=== PATIENT | female | born 1950 | race Caucasian/White ===

== ENCOUNTER 2017-03-09 11:05 | Observation (INO) | payer MEDICARE, OTHER ==
[2017-03-09 11:07] VITALS: BMI 31.5
[2017-03-09] MEDS ORDERED: Albuterol-Ipratrop 3 mg / 0.5 (3 ml) UD IH STA ×2 (11:34→11:50)
--- NOTE | 2017-03-09 11:39 | ED PDOC ---
Arrival/HPI - General Historian: Patient - History of Present Illness Time/Duration: < week Symptom Onset: Sudden Symptom Course: Intermittent Activities at Onset: Rest Context: Home <Aaron Elizondo - Last Filed: 03/09/17 12:48> <MariettaRosalinda - Last Filed: 03/09/17 12:50> - General Chief Complaint: Shortness Of Breath Time Seen by Provider: 03/09/17 11:08 - History of Present Illness Narrative History of Present Illness (Text): 03/09/17 11:36 66yo F PMH HTN, HLD, DM2 who presents to the ED with shortness of breath x3 days , which she describes as needing to take deep breaths every 2-3 mins. Pt states that she had similar symptoms last month when she was started on gemfibrozil. Pt saw Dr. Julian last week and was told to get a CXR 2 days ago. Pt states that she took her rescue inhaler over the weekend and it provided some relief, and states that Dr. Julian told her that her sob is likely due to weather changes. pt denies wheezing, pedal edema, chest pain, palpitations, fevers/ chills, n/v/d/urinary changes, cough, headache, recent travel. (Aaron Elizondo) Past Medical History - Provider Review Nursing Documentation Reviewed: Yes - Past History Past History: Non-Contributing - Infectious Disease Hx of Infectious Diseases: None - Tetanus Immunization Tetanus Immunization: Unknown - Cardiac Hx Hyperlipemia: Yes Hx Hypertension: Yes Hx Pacemaker: No - Pulmonary Hx Respiratory Disorders: No - Neurological Hx Neurological Disorder: No Hx Paralysis: No - HEENT Hx HEENT Disorder: No - Renal Hx Renal Disorder: No - Endocrine/Metabolic Hx Endocrine Disorders: Yes Hx Diabetes Mellitus Type 2: Yes - Hematological/Oncological Hx Blood Disorders: No Hx Blood Transfusions: No Hx Blood Transfusion Reaction: No - Integumentary Hx Dermatological Disorder: No - Musculoskeletal/Rheumatological Hx Musculoskeletal Disorders: No - Gastrointestinal Hx Gastrointestinal Disorders: No - Genitourinary/Gynecological Hx Genitourinary Disorders: No - Psychiatric Hx Psychophysiologic Disorder: No Hx Emotional Abuse: No Hx Physical Abuse: No Hx Substance Use: No - Surgical History Hx Section: Yes - Anesthesia Hx Anesthesia: No Hx Anesthesia Reactions: No Hx Malignant Hyperthermia: No - Suicidal Assessment Feels Threatened In Home Enviroment: No <CaroAaron garcia - Last Filed: 03/09/17 12:48> Family/Social History - Physician Review Nursing Documentation Reviewed: Yes Family/Social History: No Known Family HX Smoking Status: Never Smoked Hx Alcohol Use: No Hx Substance Use: No <Aaron Elizondo - Last Filed: 03/09/17 12:48> Allergies/Home Meds <Aaron Elizondo - Last Filed: 03/09/17 12:48> <Rosalinda Mcmanus - Last Filed: 03/09/17 12:50> Allergies/Adverse Reactions: Allergies amlodipine [From Norvasc] Allergy (Verified 03/09/17 11:33) RASH atorvastatin [From Lipitor] Allergy (Verified 03/09/17 11:33) RASH codeine Allergy (Verified 03/09/17 11:33) RASH heparin Allergy (Verified 03/09/17 11:33) RASH lisinopril Allergy (Verified 03/09/17 11:33) RASH Thiazides Allergy (Verified 03/09/17 11:33) RASH Home Medications: Home Meds Medication Instructions Recorded Confirmed Metformin Hydrochloride 500 mg PO DAILY 10/17/11 03/09/17 [Glucophage] Valsartan [Diovan] 320 mg PO QAM 10/17/11 03/09/17 Rosuvastatin Calcium [Crestor] 10 mg PO QPM 10/28/13 09/04/15 hydrALAZINE [Apresoline] 25 mg PO ONCE 03/09/17 03/09/17 Review of Systems - Physician Review All systems were reviewed & negative as marked: Yes - Review of Systems Constitutional: absent: Fevers Respiratory: SOB. absent: Cough, Sputum, Wheezing Cardiovascular: absent: Chest Pain, Palpitations, Edema <Aaron Elizondo - Last Filed: 03/09/17 12:48> Physical Exam Vital Signs Reviewed: Yes Appearance: Positive for: Well-Appearing Pain Distress: None Mental Status: Positive for: Alert and Oriented X 3 - Systems Exam Head: Present: Atraumatic, Normocephalic Pupils: Present: PERRL Extroacular Muscles: Present: EOMI Conjunctiva: Present: Normal Mouth: Present: Moist Mucous Membranes Neck: Present: Normal Range of Motion. No: Meningeal Signs, Lymphadenopathy Respiratory/Chest: Present: Clear to Auscultation, Good Air Exchange. No: Respiratory Distress, Accessory Muscle Use, Wheezes, Rales, Tachypneic Cardiovascular: Present: Regular Rate and Rhythm, Normal S1, S2. No: Murmurs Abdomen: Present: Normal Bowel Sounds. No: Tenderness, Distention Back: Present: Normal Inspection Upper Extremity: Present: Normal Inspection, Normal ROM Lower Extremity: Present: Normal Inspection. No: Edema, CALF TENDERNESS, Delonte' s Sign Neurological: Present: CN II-XII Intact, Speech Normal, Motor Func Grossly Intact, Normal Sensory Function Skin: Present: Warm, Dry, Normal Color Psychiatric: Present: Alert, Oriented x 3 <Aaron Elizondo - Last Filed: 03/09/17 12:48> Temperature: Afebrile Blood Pressure: Normal Pulse: Regular Respiratory Rate: Normal <Rosalinda Mcmanus - Last Filed: 03/09/17 12:50> Vital Signs Temp Pulse Resp BP Pulse Ox 03/09/17 11:46 18 98 03/09/17 11:10 97.9 F 73 18 148/76 100 Medical Decision Making Re-evaluation Time: 12:44 Reassessment Condition: Re-examined, Improved - Lab Interpretations I have reviewed the lab results: Yes - EKG Interpretation Interpreted by ED Physician: Yes Type: 12 lead EKG <Aaron Elizondo - Last Filed: 03/09/17 12:48> <Rosalinda Mcmanus - Last Filed: 03/09/17 12:50> ED Course and Treatment: 03/09/17 11:42 Impression: 66yo F presenting with SOB x3 days likely due to airway reactive disease Plan: - Reassess and disposition - LABS - D-Dimer - EKG - Duonebs Progress Notes: CXR from 2 days ago showed no active disease. EKG: Ordered, reviewed, and independently interpreted the EKG. Rate : 68 BPM Rhythm : NSR Interpretation : 1/2mm ST depression in V4-V6. 03/09/17 11:45 Stress Test from August 2015 results reviewed showing normal exam with >60% EF. 03/09/17 12:44 Dr. Mcmanus spoke with Dr. Julian and decided to keep patient for observation and eval. (Aaron Elizondo) A 66 year old male with shortness of breath. In agreement with resident note, which includes further HPI details. Patient was seen and evaluated with resident , came up with plan and treatment together. 03/09/17 12:46 EKG with 1/[address] depression in v4-v6 c/w old. Patient with multiple risk factors for ACS with unexplained dyspnea on exertion. Labs are nondiagnostic - will need further observation on tele and cardio and pulmonary eval. Discussed with Dr. Julian. (Rosalinda Mcmanus) - Lab Interpretations Lab Results: 03/09/17 11:40 03/09/17 11:40 Lab Results 03/09/17 11:40: Sodium 134, Potassium 3.8, Chloride 98, Carbon Dioxide 26, Anion Gap 14, BUN 13, Creatinine 0.6 L, Est GFR ( Amer) > 60, Est GFR ( Non-Af Amer) > 60, Random Glucose 117 H, Calcium 9.6, Total Bilirubin 0.4, AST 25, ALT 31, Alkaline Phosphatase 76, Lactate Dehydrogenase 318 L, Total Creatine Kinase 78, Troponin I < 0.01, NT-Pro-B Natriuret Pep 40.0, Total Protein 7.6, Albumin 4.4, Globulin 3.2, Albumin/Globulin Ratio 1.4 03/09/17 11:40: D-Dimer, Quantitative 0.21 03/09/17 11:40: WBC 8.4 D, RBC 4.58, Hgb 12.6, Hct 36.8, MCV 80.3, MCH 27.5, MCHC 34.2, RDW 13.7, Plt Count 251, MPV 10.3, Gran % 58.0, Lymph % (Auto) 34.1, Ferry % (Auto) 6.6 H, Eos % (Auto) 1.1 L, Baso % (Auto) 0.2, Gran # 4.84, Lymph # 2.9, Ferry # 0.6, Eos # 0.1, Baso # 0.02 - Medication Orders Current Medication Orders: Discontinued Medications Albuterol/Ipratropium (Duoneb 3 Mg/0.5 Mg (3 Ml) Ud) 3 ml IH STAT STA Stop: 03/09/17 11:35 Last Admin: 03/09/17 11:57 Dose: 3 ml Albuterol/Ipratropium (Duoneb 3 Mg/0.5 Mg (3 Ml) Ud) 3 ml IH STAT STA Stop: 03/09/17 11:51 Last Admin: 03/09/17 11:57 Dose: Aspirin (Aspirin Chewable) 324 mg PO STAT STA Stop: 03/09/17 12:45 <Aaron Elizondo - Last Filed: 03/09/17 12:48> - PA / REHEATER HELPER / Resident Statement MD/DO has reviewed & agrees with the documentation as recorded. MD/DO has examined the patient and agrees with the treatment plan. - Scribe Statement The provider has reviewed the documentation as recorded by the Scribe <Rosalinda Mcmanus - Last Filed: 03/09/17 12:50> - Scribe Statement Eoldia Quezada Provider Scribe Attestation: All medical record entries made by the Scribe were at my direction and personally dictated by me. I have reviewed the chart and agree that the record accurately reflects my personal performance of the history, physical exam, medical decision making, and the department course for this patient. I have also personally directed, reviewed, and agree with the discharge instructions and disposition. (Rosalinda Mcmanus) Disposition/Present on Arrival - Present on Arrival Any Indicators Present on Arrival: No History of DVT/PE: No History of Uncontrolled Diabetes: Yes Urinary Catheter: No History of Decub. Ulcer: No History Surgical Site Infection Following: None - Disposition Have Diagnosis and Disposition been Completed?: Yes Disposition Time: 12:45 Patient Plan: Observation <Aaron Elizondo - Last Filed: 03/09/17 12:48> - Disposition Patient Plan: Observation, Telemetry <Rosalinda Mcmanus - Last Filed: 03/09/17 12:50> - Disposition Diagnosis: Shortness of breath Disposition: HOSPITALIZED Patient Problems: Current Active Problems Problem Status Onset Shortness of breath Acute Condition: FAIR Referrals: PCP,NO [Primary Care Provider] - Follow up with primary Forms: [facility] (Malay)
[2017-03-09 11:45] LABS: BASO # 0.02 K/mm3 (0.0-2.0); BASO % 0.2 % (0.0-3.0); EOS # 0.1 (0.0-0.7); EOS % 1.1 % (1.5-5.0); GRAN # 4.84 (1.4-6.5); HEMATOCRIT 36.8 % (36.0-48.0); LYMPH # 2.9 (1.2-3.4); LYMPH % 34.1 % (22.0-35.0); MEAN CELL VOLUME 80.3 fl (80.0-105.0); MEAN CORPUSCULAR HEMOGLOBIN 27.5 pg (25.0-35.0); MEAN CORPUSCULAR HGB CONC 34.2 g/dl (31.0-37.0); MEAN PLATELET VOLUME 10.3 fl (7.0-11.0); MONO # 0.6 (0.1-0.6); MONO % 6.6 % (1.0-6.0); RED CELL DISTRIBUTION WIDTH 13.7 % (11.5-14.5); WHITE BLOOD COUNT 8.4 10^3/ul (4.5-11.0)
[2017-03-09 11:53] LABS: ALB/GLOB RATIO 1.4 (1.1-1.8); ALKALINE PHOSPHATASE 76 U/L (38-126); ALT/SGPT 31 U/L (7-56); AST/SGOT 25 U/L (14-36); BILIRUBIN,TOTAL 0.4 mg/dL (0.2-1.3); BLOOD UREA NITROGEN 13 mg/dL (7-21); CALCIUM 9.6 mg/dL (8.4-10.5); CARBON DIOXIDE 26 mmol/L (21-33); CHLORIDE 98 mmol/L (98-107); GFR AFRICAN-AMERICAN > 60; GLUCOSE,RANDOM 117 mg/dL (70-110); POTASSIUM 3.8 mmol/L (3.6-5.0); SODIUM 134 mmol/L (132-148); TOTAL PROTEIN 7.6 g/dL (5.8-8.3)
[2017-03-09 12:06] LABS: TROPONIN I < 0.01 ng/mL
[2017-03-09 12:53] LABS: URINE BILIRUBIN NEGATIVE (NEGATIVE); URINE BLOOD NEGATIVE (NEGATIVE); URINE GLUCOSE (UA) NEGATIVE (NEGATIVE); URINE KETONE NEGATIVE (NEGATIVE); URINE LEUKOCYTE ESTERASE NEGATIVE Leu/uL (NEGATIVE); URINE PROTEIN NEGATIVE mg/dL (<30 mg/dL); URINE UROBILINOGEN 0.2 E.U./dL (<1 E.U./dL)
[2017-03-09 12:55] LABS: URINE APPEARANCE CLEAR (CLEAR); URINE COLOR YELLOW (YELLOW)
[2017-03-09] MEDS ORDERED: METFORMIN HYDROCHLORIDE 500 MG PO SCH (18:00)
--- NOTE | 2017-03-09 19:14 | CARD ---
APPROVED REPORT EKG Measurement Heart [id number] <Conclusion> Normal sinus rhythm Normal ECG
[2017-03-09] MEDS ORDERED: Pneumococcal 23-Valent Vaccine IM ONE (19:43)
--- NOTE | 2017-03-09 20:47 | CON ---
DATE: 03/09/2017 CONSULT SERVICE: Cardiology. REASON FOR CONSULTATION: Shortness of breath, cardiac evaluation. BRIEF CLINICAL HISTORY: This is a 66-year-old female with a past medical history significant for hypertension, hyperlipidemia, type 2 diabetes, obesity, who is on multiple medications, who was seen by Dr. Julian who gave her gemfibrozil and the patient then says that shortness of breath started on 02/14/2017. She took it for five days and did get more short of breath, since then the patient has been short of breath though the patient just started gemfibrozil. The patient says that this is her usual presentation of reaction to the medication, though denies any definite chest pain complaint, dyspnea on exertion, or shortness of breath on exertion. PAST MEDICAL HISTORY: Significant for diabetes, hypertension, hyperlipidemia, and obesity. SOCIAL HISTORY: Denies smoking. Denies any history of alcohol. CURRENT MEDICATIONS: The patient is taking Crestor 10 mg daily, hydralazine 25 mg daily, valsartan 320 mg, and metformin 500 mg daily. ALLERGIES: REPORTED TO AMLODIPINE, ATORVASTATIN, CODEINE, HEPARIN, GEMFIBROZIL, LISINOPRIL, AND THIAZIDE. FAMILY HISTORY: Significant for coronary artery disease. Mother had coronary artery disease. Brother had coronary artery disease and stent at the age of 61. Previous cardiac workup is as follows: The patient had a stress test on 09/03/2015, normal myocardial perfusion study, ejection fraction of 72%, dated 09/03/2015. REVIEW OF SYSTEMS: As per HPI. PHYSICAL EXAMINATION VITAL SIGNS: Temperature, afebrile, heart rate 60, and blood pressure 134/80. HEENT: PERRLA intact. NECK: Supple. No carotid bruit or thyromegaly. CHEST: Clear to auscultation. HEART: S1 and S2 regular. ABDOMEN: Soft. EXTREMITIES: Clubbing and cyanosis negative. LABORATORY DATA: Blood workup as follows: WBC 8.5, hemoglobin 12.3, hematocrit 36.8, and platelet count 251. Chemistry shows sodium 134, potassium 3.8, chloride 90, carbon dioxide 26, anion gap of 14, BUN 13, creatinine 0.6, troponin 0.01. EKG shows normal sinus, no acute ST-T changes noted, heart rate is 60. IMPRESSION AND PLAN: Dyspnea on exertion, diabetes, obesity, elevated body mass index, multiple risk factors for coronary artery disease, body mass index is 32 kg/m2. I suggest echo and the stress, lipid profile, TSH, hemoglobin A1c. We will follow with you. The patient has multiple risk factors for coronary artery disease. I suggest echo and the stress as mentioned above. We will follow with you. Thank you Dr. Julian for providing me the opportunity in taking care of the patient, Leticia. Julio Reyna MD
[2017-03-09] MEDS: Albuterol-Ipratrop 3 mg / 0.5 (3 ml) UD IH SCH (20:55)
[2017-03-10] MEDS: Albuterol-Ipratrop 3 mg / 0.5 (3 ml) UD IH SCH ×3 (02:30→13:46)
[2017-03-10 06:12] VITALS: O2SAT 97
[2017-03-10 06:18] LABS: BASO # 0.03 K/mm3 (0.0-2.0); BASO % 0.3 % (0.0-3.0); EOS # 0.1 (0.0-0.7); EOS % 0.9 % (1.5-5.0); GRAN # 6.29 (1.4-6.5); GRAN % 58.9 % (50.0-68.0); HEMATOCRIT 35.5 % (36.0-48.0); LYMPH # 3.5 (1.2-3.4); LYMPH % 33.1 % (22.0-35.0); MEAN CELL VOLUME 80.3 fl (80.0-105.0); MEAN CORPUSCULAR HEMOGLOBIN 27.1 pg (25.0-35.0); MEAN CORPUSCULAR HGB CONC 33.8 g/dl (31.0-37.0); MEAN PLATELET VOLUME 10.9 fl (7.0-11.0); MONO # 0.7 (0.1-0.6); MONO % 6.8 % (1.0-6.0); RED CELL DISTRIBUTION WIDTH 13.8 % (11.5-14.5); WHITE BLOOD COUNT 10.7 10^3/ul (4.5-11.0)
[2017-03-10 06:37] LABS: ALB/GLOB RATIO 1.4 (1.1-1.8); ALKALINE PHOSPHATASE 76 U/L (38-126); ALT/SGPT 34 U/L (7-56); AST/SGOT 23 U/L (14-36); BILIRUBIN,TOTAL 0.4 mg/dL (0.2-1.3); BLOOD UREA NITROGEN 12 mg/dL (7-21); CALCIUM 9.5 mg/dL (8.4-10.5); CARBON DIOXIDE 26 mmol/L (21-33); CHLORIDE 99 mmol/L (98-107); CHOLESTEROL 145 mg/dL (130-200); GFR AFRICAN-AMERICAN > 60; GLUCOSE,RANDOM 110 mg/dL (70-110); MAGNESIUM 1.8 mg/dL (1.7-2.2); PHOSPHOROUS 4.1 mg/dL (2.5-4.5); SODIUM 137 mmol/L (132-148); TOTAL PROTEIN 7.4 g/dL (5.8-8.3)
--- NOTE | 2017-03-10 08:53 | HP ---
CHIEF COMPLAINT: Shortness of breath. HISTORY OF PRESENT ILLNESS: Ms. Sheikh Kelly is a 66-year-old my private patient with past medical history of hypertension, hypercholesterolemia, diabetes mellitus, came to the Emergency Room with shortness of breath for 3 days, which she described as needing to take deep breath every 2 to 3 minutes, the patient states that she had similar symptoms last month. Actually, we did patient's routine blood workup as her triglyceride was high, I put her on gemfibrozil. The patient started shortness of breath. She was thinking that her shortness of breath is due to gemfibrozil and she was informed to stop gemfibrozil, then last week she came in my office again with shortness of breath. Actually, I offered her ER visit, she refused, then I gave her phone number of Dr. Rodriguez and scheduled her appointment with Dr. Spring and I sent her for chest x-rays. The patient was using rescue inhaler when she was feeling shortness of breath with some relief. According to the patient, she is snoring at night and always her blood pressure in the morning is high as compared to the daytime. I saw the patient in the telemetry. No nausea, vomiting, or diarrhea. No hematuria or hematochezia. No swelling of the legs. No headache. No dizziness. PAST MEDICAL HISTORY: Hypercholesterolemia, hypertension; diabetes mellitus type 2, medicine dependent, non-insulin requiring, and history of section. FAMILY HISTORY: Father and mother noncontributory. HABITS: Never smoked. No drugs. No ethanol. ALLERGIES: THE PATIENT IS ALLERGIC WITH AMLODIPINE, ATORVASTATIN, CODEINE, HEPARIN, LISINOPRIL, AND THIAZIDE. HOME MEDICATIONS: Glucophage, Diovan, Crestor, and hydralazine. REVIEW OF SYSTEMS: The patient was seen and examined at the bedside in the telemetry, looking comfortable. No nausea, vomiting, or diarrhea. No hematuria or hematochezia. No chest pain. No palpitations. No headache. No dizziness. Still getting occasional shortness of breath. No fever. No chills. Seen by the production analyst and banjo repair person. PHYSICAL EXAMINATION: VITAL SIGNS: Temperature 97.9, pulse 73, respiratory rate 18, blood pressure 148/76, and pulse oximetry 100. HEENT: Head is normocephalic and atraumatic. Eyes: PERRLA. Extraocular muscles are intact. Conjunctivae clear. Nose is patent. NECK: Supple. No carotid bruit, JVD, or thyromegaly. CHEST: Bilaterally symmetrical. HEART: S1 and S2 positive. LUNGS: Clear to auscultation. ABDOMEN: Soft. Bowel sounds positive. No organomegaly. EXTREMITIES: No edema. No cyanosis. NEUROLOGIC: The patient is awake and alert. Moving all 4 extremities. No focal deficits. LABORATORY DATA: White blood cell is 8.4, hemoglobin 12.6, hematocrit 36.8, and platelets 251. Sodium 134, potassium 3.8, BUN 13, creatinine 0.6, and glucose 117. ASSESSMENT AND PLAN: Ms. Sheikh Kelly is a 66-year-old lady with a history of diabetes mellitus, hypercholesterolemia, hypertriglyceridemia, hypertension, obesity, and dyspnea on exertion. Seen by Dr. Reyna. He suggested echo and stress test tomorrow. Seen by Dr. Spring also, rule out obstructive sleep apnea and according to the patient, her blood pressure in the morning is always high as compared to the daytime. Discussion done with Dr. Reyna and Dr. Spring, gastrointestinal and deep venous thrombosis prophylaxis, repeat labs, restarted home medication, and we will followup. Lupe Julian MD
--- NOTE | 2017-03-10 08:58 | CON ---
PULMONARY DATE: 03/09/2017 REFERRING PHYSICIAN: Dr. Julian. REASON FOR CONSULTATION: Shortness of breath, snoring, daytime sleeping, and tired. HISTORY OF PRESENT ILLNESS: This is a 66-year-old female with past medical history significant for labile hypertension, diabetes, hyperlipidemia, overweight, presented to ER with some shortness of breath. According to her, her blood pressure in the morning is usually high, daytime it improves, has snoring, daytime sleeping and tired. No nausea. No vomiting. No diarrhea. No leg pain or leg swelling. PAST MEDICAL HISTORY: Diabetes, hypertension, hyperlipidemia, and overweight. SOCIAL HISTORY: No smoking or alcohol use. FAMILY HISTORY: No significant lung disease reported. There is a coronary artery disease in the family though. ALLERGIES: AMLODIPINE, ATORVASTATIN, CODEINE, HEPARIN,GEMFIBROZIL, LISINOPRIL, AND . MEDICATIONS: She is on Diovan 320 mg daily, albuterol/Atrovent nebulizer q.6 hour, Ecotrin 81 mg daily, metformin 500 mg daily, Pepcid 40 mg at bedtime, and Crestor 10 mg daily. REVIEW OF SYSTEMS: No headache. No rhinitis. Admitted to snoring at nighttime. Daytime sleeping and tired. In the morning has usually high blood pressure. No nausea and no vomiting. No dysuria, leg pain, or leg swelling. Gets short of breath. PHYSICAL EXAMINATION: GENERAL: No acute distress. VITAL SIGNS: Temperature is 98, heart rate 72, respiratory rate is 20, blood pressure 145/64 and pulse ox 98% on room air. HEENT: Moist mucous membrane. Crowded airway. NECK: Supple. No JVD. LUNGS: Has a fair airflow with few rhonchi. HEART: S1 and S2. ABDOMEN: Soft and nontender. No organomegaly. EXTREMITIES: There is no edema. NEUROLOGIC: Awake and alert. Follow simple command. LABORATORY DATA: Shows hemoglobin 12.6, hematocrit 36.8, WBC 8.4, platelet is 251. D-dimer is 0.21. Sodium 134, potassium 3.8, chloride 98, bicarbonate 26, BUN 13, creatinine 0.6, glucose is 117, calcium 9.6. Total bilirubin is 0.4, AST 25, ALT 31, alkaline phosphatase is 76. LDH is 318, troponin less than 0.01. Albumin is 4.4. EKG was done, which shows normal sinus rhythm. IMPRESSION AND PLAN: Rule out coronary artery disease, hypertension, diabetes, hyperlipidemia, need to rule out lung disease, and sleep apnea syndrome. Agree with the cardiac workup. Get chest x-ray. We will do outpatient pulmonary function test and sleep study. Case discussed with Dr. Julian. Thank you and we will follow with you. Julio Spring MD
[2017-03-10] MEDS ORDERED: Non Formulary Medication (Valsartan [Diovan] 320 MG) PO SCH (10:00)
--- NOTE | 2017-03-10 13:02 | RAD ---
HISTORY: sob COMPARISON: 03/07/2017 TECHNIQUE: Chest PA and lateral FINDINGS: LUNGS: No active pulmonary disease. PLEURA: No significant pleural effusion identified. No pneumothorax apparent. CARDIOVASCULAR: Normal. OSSEOUS STRUCTURES: No significant abnormalities. VISUALIZED UPPER ABDOMEN: Normal. OTHER FINDINGS: None. IMPRESSION: No active disease.
--- NOTE | 2017-03-10 14:29 | PN ---
DATE: 03/10/2017 REASON FOR CONSULTATION: Followup shortness of breath and cardiac evaluation. SUBJECTIVE: This is a 66-year-old female with past medical history significant for hypertension, hyperlipidemia, multiple risk factors, admitted with shortness of breath and chest pain. The patient is scheduled for a stress test today. Denies any chest pain today. PHYSICAL EXAMINATION VITAL SIGNS: Temperature is afebrile, heart rate is 70, and blood pressure is 134/59. HEENT: PERRLA. Extraocular muscles intact. NECK: Supple. No carotid bruit or thyromegaly. CHEST: Clear to auscultation. HEART: S1 and S2 regular. ABDOMEN: Soft. EXTREMITIES: Clubbing and cyanosis negative. LABORATORY DATA: Blood workup as follows: WBC of 10.9, hemoglobin of 12, hematocrit of 35.5, and platelet count of 258. Chemistry shows sodium of 132, potassium of 4, chloride of 99, carbon dioxide of 16, anion gap of 12, and creatinine 0.6. TSH is 6.98. Total protein of 7.4, albumin of 2.4, albumin-globulin ratio 1.4. Triglycerides of 118, cholesterol of 145, LDL of 57, and HDL of 68. IMPRESSION: Dyspnea on exertion, obesity with body mass index 28.5 kg, diabetes, hypertension, hyperlipidemia, multiple risk factors of coronary artery disease, and hypothyroidism. RECOMMENDATIONS: Recommended echo and stress test today, awaiting for hemoglobin A1c. Further recommendations after the stress test, we will add low dose of Synthroid. Thank you Dr. Julian for providing us the opportunity in taking care of patient, Leticia Mcpherson. Julio Reyna MD
[2017-03-10 15:43] VITALS: PULSE 64
--- NOTE | 2017-03-10 16:13 | CARD ---
APPROVED REPORT EXAM: Two-dimensional and M-mode echocardiogram with Doppler and color Doppler. INDICATION Chest Pain LV FX 2D DIMENSIONS Left Atrium (2D)3.0 (1.6-4.0cm)IVSd1.0 (0.7-1.1cm) LVDd4.3 (3.9-5.9cm)PWd0.9 (0.7-1.1cm) LVDs2.9 (2.5-4.0cm)FS (%) 33.5 % LVEF (%)62.6 (>50%) M-Mode DIMENSIONS Aortic Root2.80 (2.2-3.7cm)Aortic Cusp Exc.1.30 (1.5-2.0cm) Aortic Valve AoV Peak Yqeqmscs395.0cm/Raf Peak GR.11mmHg Mitral Valve MV E Scswxoia87.8cm/sMV A Hfdudzzv133.0cm/sE/A ratio0.8 TDI E/Lateral E'0.0E/Medial E'0.0 Tricuspid Valve TR Peak [id number]/sRAP [id number] Peak Gr.31mmHg [id number] LEFT VENTRICLE The left ventricle is normal size. There is normal left ventricular wall thickness. The left ventricular function is normal.EF-60-65% There is normal LV segmental wall motion. Transmitral Doppler flow pattern is Grade III-reversible restrictive diastolic dysfunction. No left ventricle thrombus noted on this study. There is no ventricular septal defect visualized. There is no left ventricular aneurysm. There is no mass noted in the left ventricle. RIGHT VENTRICLE The right ventricle is normal size. There is normal right ventricular wall thickness. The right ventricular systolic function is normal. ATRIA The left atrium size is normal. The right atrium size is normal. The interatrial septum is intact with no evidence for an atrial septal defect. AORTIC VALVE The aortic valve is thickened but opens well. No aortic regurgitation is present. There is no aortic valvular stenosis. There is no aortic valvular vegetation. MITRAL VALVE The mitral valve is thickened but opens well. Mitral regurgitation is mild to moderate. There is no mitral valve stenosis. There is no evidence of mitral valve prolapse. TRICUSPID VALVE The tricuspid valve leaflets are thickened , but open well. There is moderate tricuspid regurgitation.RVSP-41 mmof hg. There is no tricuspid valve stenosis. There is no tricuspid valve prolapse or vegetation. PULMONIC VALVE The pulmonary valve is normal in structure. There is no pulmonic valvular regurgitation. There is no pulmonic valvular stenosis. GREAT VESSELS The aortic root is normal in size. The ascending aorta is normal in size. The pulmonary artery is normal. The IVC is normal in size and collapses >50% with inspiration. PERICARDIAL EFFUSION There is no pleural effusion. There is no pericardial effusion. <Conclusion> Normal chamber size. EF-60-65% Mitral regurgitation is mild to moderate. There is moderate tricuspid regurgitation.RVSP-41 mmof hg. There is no pericardial effusion. The IVC is normal in size and collapses >50% with inspiration. No vegetation or thrombus noted.
[2017-03-10 18:28] VITALS: BP 119/51; RESP 19; TEMP 98.4
--- NOTE | 2017-03-10 19:33 | CARD ---
APPROVED REPORT Protocol: WANDA Test Type: Sestamibi Stress Test Attending Physician: Dr. Julio Rodriguez Referring Physician: Dr. Lupe Julian Test Indications: Dyspnea with Exercise Height:5 ft 4 in Weight:154lbs Medications: albuterol, aspirin, pepcid, metformin, crestor, diovan Medical History: 66 year old female with a h/o diabetes, htn and high cholesterol Target HR: 153 bpm Resting ECG: RSR. Resting Heart Rate: 69 bpm Resting Blood Pressure: 132/76mmHg Submaximum (85%): 130 bpm POST EXERCISE Reason for Termination: Fatigue and Shortness of Breath. Target HR: Yes Max HR: 155 bpm 110% of Maximum Predicted HR: 153 bpm Exercise duration: 06:04 min:sec, 3 Stage Exercise capacity: 7.1METs Max Blood Pressure: 142/86mmHg Blood Pressure response to exercise: normal resting BP - appropriate response Heart Rate response to exercise: appropriate Chest Pain: No, none Angina index: 0 Arrhythmia: No, none ST Change: Yes, ST Depression 1mm upsloping type in 2,3,AVF,V4, V5 Deviation: 0 mm TEST SUMMARY [id number]/.0. [id number]/[id number]. EXERCISESTAGE [id number]/66.0. EXERCISESTAGE 203:[id number]/78.0. EXERCISESTAGE 300:[id number]/78.0. [id number]/86.0. INTERPRETATION Stress EKG Conclusion: MYOVIEW STRESS TEST STOPPED AFTER 5 MINUTES AND 40 SECONDS OF WANDA PROTOCOL DUE TO FATIGUE AND SHORTNESS OF BREATH. PATIENT ACHIEVED MORE THAN 100% OF PREDICTED HEART RATE. NO CHEST PAIN. CLOSE TO 1MM UPSLOPING TYPE ST SEGMENT DEPRESSION IN 2,3, AVF,V4,V5,V6. NUCLEAR SCAN REPORT PENDING. Signed by Julio Rodriguez Electronically Approved: 03/10/2017 11:59:58 EXAM: Myocardial Perfusion REST/STRESS Stress Test Type: Exercise Treadmill Imaging Protocol Rest Spect myocardial perfusion imaging was performed in supine position 45 minutes following the injection of 10.8 mCi of Tc-99 Myoview. At peak stress, the patient was injected intravenously with 30.9mCi of Tc-99 tetrofosmin after an exercise time of 6 minutes and 04 seconds. Gated Stress Spect was performed 65 minutes after intravenous Tc-99 Myoview injection. The images were gated to evaluate regional wall motion and calculate ventricular ejection fraction.Images were reconstructed using backfilter projection method in short horizontal and verticle long axis. Spect slices were generated. LV Perfusion The quality of the study is good. The left ventricle is normal in size. The right ventricle is unremarkable. The lung uptake is within normal limits. The distribution of tracer reveals normal uptake pattern throughout the LV myocardium on the stress study. The rest myocardial perfusion study shows no significant change. Wall Motion Wall motion study shows good contractility of the left ventricle. LVEF = 78%. Conclusion 1. Normal SPECT myocardial perfusion study. 2. Normal gated wall motion of the left ventricle. 3. In comparison with the last study of 09/03/2015, there is no significant change
--- NOTE | 2017-03-11 00:30 | PN ---
PULMONARY PROGRESS NOTE DATE: 03/10/2017 REFERRING PHYSICIAN: Dr. Julian. SUBJECTIVE: She is sitting on side of the bed. Her daughter and his physician are at bedside, has a cardiac workup done today, was told it is unremarkable. Feels better. No more shortness of breath. No chest pain. No nausea, no vomiting, no diarrhea. No leg pain or leg swelling. Her blood pressure is usually high in the morning, but later in the afternoon gets better. OBJECTIVE: GENERAL: In no acute distress. VITAL SIGNS: Temperature is 98, heart rate is 64, respiratory rate 18, blood pressure is 119/51 and pulse ox 97% on room air. HEENT: Moist mucous membranes. Crowded airway. NECK: Supple. No JVD. LUNGS: Has a fair airflow with rhonchi. HEART: S1 and S2. ABDOMEN: Soft, nontender. No organomegaly. EXTREMITIES: There is no edema. NEUROLOGIC: Awake and alert. Follows simple commands. LABORATORY DATA: Reviewed noted. Hemoglobin 12.0, hematocrit 35.5, WBC 10.7, platelet is 258. Sodium 137, potassium 4.0, chloride 99, bicarbonate 26, BUN 12, creatinine 0.6 and glucose 110. Hemoglobin A1c is 6.9, calcium is 9.5, phosphorus 4.1, magnesium 1.8, AST 23, ALT 34, alkaline phosphatase is 76 and albumin is 4.4. HDL cholesterol is 68 and total cholesterol 145. TSH is 6.98. Urinalysis is unremarkable. Had a chest x-ray done, which shows no infiltrate or effusion. Echocardiogram was done, which shows LV ejection fraction 60% to 65%, moderate tricuspid regurgitation right ventricular systolic pressure is 41. Stress test shows normal wall motion, LV ejection fraction 78%. Normal gated wall motion and left ventricle. IMPRESSION AND PLAN: Admitted with shortness of breath, chest x-ray is okay. Echocardiogram shows mild pulmonary hypertension. Hyperlipidemia and hypertension need to rule out sleep apnea syndrome. We will need sleep study as outpatient and also need PFT. Spoke to the patient's daughter and his physician at bedside, all the questions answered. Thank you and we will follow with you. Julio Spring MD
[2017-03-11] MEDS ORDERED: Levothyroxine 25 MCG TAB PO SCH (06:00)
--- NOTE | 2017-03-11 20:08 | DS ---
The patient is a 66-year-old female. The patient was admitted on 03/09/2017 and discharged 03/10/2017. CHIEF COMPLAINT: Shortness of breath. HISTORY OF PRESENT ILLNESS: Ms. Leticia Mcpherson is a 66-year-old patient with past medical history of hypertension, hypercholesterolemia, and diabetes mellitus, came to the emergency room with shortness of breath from 3 days, which she described as she was feeling that she had to take deep breath every 2 to 3 minutes. According to the patient, she had similar symptoms last month, readmitted the patient, called Cardiology consult with Dr. Reyna and Pulmonary consult with Dr. Spring. Chest x ray done, reviewed by me. Stress test and echocardiography done, reviewed by me. The patient was cleared for discharge by the location analyst and optical engineering manager. The patient's daughter is a physician psychiatrist doing residency, she was at the bedside, Connie. Length of time discussion done with her. All questions answered. PAST MEDICAL HISTORY: Hypercholesterolemia, hypertension, diabetes mellitus type 2, non-insulin requiring, history of section. FAMILY HISTORY: Father and mother, noncontributory. HABITS: Never smoked. No drugs. No ethanol. ALLERGIES: THE PATIENT IS ALLERGIC WITH AMLODIPINE, ATORVASTATIN, CODEINE, HEPARIN, LISINOPRIL, AND THIAZIDE. HOME MEDICATIONS: Glucophage, Diovan, Crestor, and hydralazine. REVIEW OF SYSTEMS: The patient was seen and examined at the bedside, looking comfortable. No nausea, vomiting or diarrhea. No hematuria or hematochezia. No swelling of the legs. No chest pain. No palpitation. No headache or dizziness. PHYSICAL EXAMINATION: VITAL SIGNS: Temperature 98.4, pulse , blood pressure 119/51, respiratory rate 19. HEENT: Head, normocephalic, atraumatic. Eyes, PERRLA. Extraocular muscles are intact. Conjunctivae clear. Nose is patent. Mucous membrane is moist. NECK: Supple. No carotid bruit. No JVD or thyromegaly. CHEST: Bilaterally symmetrical. HEART: S1 and S2 positive. LUNGS: Clear to auscultation. ABDOMEN: Soft. Bowel sounds present. No organomegaly. EXTREMITIES: No edema. No cyanosis. NEUROLOGIC: The patient is awake and alert. Moving all 4 extremities. No focal deficit. LABORATORY DATA: White blood cells 10.7, hemoglobin 12.0, hematocrit 35.5, and platelets 258. Sodium 137, potassium 4.0, BUN 12, creatinine 0.6, and glucose 185 and 117. Hemoglobin A1c is 6.9. TSH is 6.69. ASSESSMENT AND PLAN: Ms. Leticia Mcpherson is a 66-year-old lady with diabetes mellitus, hemoglobin A1c is 6.9, and hypothyroidism. Dr. Reyna started levothyroxine at [address] Spring for shortness of breath; history of hypercholesterolemia; dyspnea on exertion; obesity, body mass index 32 kg/m2. Went for echocardiography and stress test today, seen by Dr. Spring also, rule out coronary artery disease and sleep apnea syndrome. The patient needs pulmonary function test and sleep study as per Dr. Spring. Discussion done with Dr. Spring. Reviewed myocardial stress test. According to that, normal SPECT myocardial perfusion study, normal gated wall motion of the left ventricle. In comparison with the last study on 09/03/2015, there is no significant change. According to echocardiography, normal chamber size, ejection fraction of 60-65%, mitral regurgitation is mild to moderate. This is moderate tricuspid regurgitation, RVSP 41 mmHg. There is no pericardial effusion. The IVC is normal in size, 50% with inspiration. No vegetations noted. Gastrointestinal and deep venous thrombosis prophylaxis given. The patient was cleared by the location analyst and optical engineering manager, so discharged home. Aspirin was given. Albuterol was given. The patient was using Crestor. We will follow up as outpatient. Length of time discussion done with the patient and the patient's daughter. Lupe Julian MD
== END 2017-03-10 18:38 | disposition home or self-care (01) ==
LOC: ED 11:05 → ERH 12:43 → 2RNO 15:40
PROVIDERS: ADMIT Internal Medicine; ATTEND Internal Medicine
DX: J45.909 Unspecified asthma, uncomplicated (principal); E11.9 Type 2 diabetes mellitus without complications; E66.9 Obesity, unspecified; E78.00 Pure hypercholesterolemia, unspecified; E78.1 Pure hyperglyceridemia; E78.5 Hyperlipidemia, unspecified; I10 Essential (primary) hypertension; I25.10 Atherosclerotic heart disease of native coronary artery without angina pectoris; I27.20 Pulmonary hypertension, unspecified; Z68.28 Body mass index [BMI] 28.0-28.9, adult; Z79.899 Other long term (current) drug therapy; Z82.49 Family history of ischemic heart disease and other diseases of the circulatory system; Z88.5 Allergy status to narcotic agent; Z88.8 Allergy status to other drugs, medicaments and biological substances; Z68.32 Body mass index [BMI] 32.0-32.9, adult; G47.30 Sleep apnea, unspecified; E03.9 Hypothyroidism, unspecified; I07.1 Rheumatic tricuspid insufficiency
CPT/HCPCS: 36415; 71020; 78452; 80053; 80061; 81003; 82550; 82948; 83036; 83615; 83735; 83880; 84100; 84443; 84484; 85025; 85378; 93005; 93017; 93306; 94640; 94760; 99285; A9502; G0378

== ENCOUNTER 2018-06-21 16:20 | Emergency (ER) | payer MEDICARE ==
[2018-06-21 16:21] VITALS: BMI 31.5
[2018-06-21 16:49] VITALS: BP 162/77; PULSE 62; RESP 18; TEMP 97.9; O2SAT 99
--- NOTE | 2018-06-21 16:55 | ED PDOC ---
Arrival/HPI - General Chief Complaint: Lower Extremity Problem/Injury Time Seen by Provider: 06/21/18 16:23 Historian: Patient - History of Present Illness Narrative History of Present Illness (Text): 06/21/18 16:52 68yo female with pmhx of hypertension, diabetes, hyperlipdemia who present with complaint of right posterior knee/calf pain since last night. Notes that pain started while trying to stand up from a chair last night. states she took Ibuprofen this morning with some relieve. Describes pain as sharp and constant, but with improvement since last night. Denies chest pain, diaphoresis, recent travel/surgery, nausea, vomiting, dizziness, any other complaint. Past Medical History - Provider Review Nursing Documentation Reviewed: Yes - Past History Past History: Non-Contributing - Infectious Disease Hx of Infectious Diseases: None - Tetanus Immunization Tetanus Immunization: Unknown - Reproductive Menopause: Yes - Cardiac Hx Hypertension: Yes - Pulmonary Hx Respiratory Disorders: No - Neurological Hx Neurological Disorder: No - HEENT Hx HEENT Disorder: Yes (eyeglasses) - Renal Hx Renal Disorder: No - Endocrine/Metabolic Hx Endocrine Disorders: Yes Hx Diabetes Mellitus Type 2: Yes - Hematological/Oncological Hx Blood Disorders: No - Integumentary Hx Dermatological Disorder: No - Musculoskeletal/Rheumatological Hx Falls: No - Gastrointestinal Hx Gastrointestinal Disorders: No - Genitourinary/Gynecological Hx Genitourinary Disorders: No - Psychiatric Hx Psychophysiologic Disorder: No Hx Emotional Abuse: No Hx Physical Abuse: No Hx Substance Use: No - Surgical History Hx Section: Yes - Anesthesia Hx Anesthesia: No Hx Anesthesia Reactions: No Hx Malignant Hyperthermia: No - Suicidal Assessment Feels Threatened In Home Enviroment: No Family/Social History - Physician Review Nursing Documentation Reviewed: Yes Family/Social History: Unknown Family HX Smoking Status: Never Smoked Hx Alcohol Use: No Hx Substance Use: No Allergies/Home Meds Allergies/Adverse Reactions: Allergies amlodipine [From Norvasc] Allergy (Verified 06/21/18 16:46) RASH atorvastatin [From Lipitor] Allergy (Verified 06/21/18 16:46) RASH codeine Allergy (Verified 06/21/18 16:46) RASH heparin Allergy (Verified 06/21/18 16:46) RASH lisinopril Allergy (Verified 06/21/18 16:46) RASH Thiazides Allergy (Verified 06/21/18 16:46) RASH Home Medications: Home Meds Medication Instructions Recorded Confirmed RX: Rosuvastatin Calcium [Crestor] 10 mg PO QPM 10/28/13 03/10/17 Aspirin [Ecotrin] 81 mg PO DAILY 03/09/17 03/10/17 Metformin HCl [Glucophage] 500 mg PO BID 03/09/17 03/10/17 RX: hydrALAZINE [Apresoline] 25 mg PO BID 03/09/17 03/09/17 Valsartan [Diovan] 320 mg PO DAILY 03/09/17 03/10/17 Levothyroxine Sodium [Unithroid] 25 mcg PO ACB 03/10/17 03/10/17 Review of Systems - Physician Review All systems were reviewed & negative as marked: Yes - Review of Systems Constitutional: Normal Eyes: Normal ENT: Normal Respiratory: Normal Cardiovascular: Normal Gastrointestinal: Normal Genitourinary Female: Normal Musculoskeletal: Arthralgias (Right posterior knee/calf) Skin: Normal Neurological: Normal Endocrine: Normal Hemo/Lymphatic: Normal Psychiatric: Normal Physical Exam Vital Signs Reviewed: Yes Vital Signs Temp Pulse Resp BP Pulse Ox 06/21/18 16:47 97.9 F 62 18 162/77 H 99 Temperature: Afebrile Blood Pressure: Normal Pulse: Regular Respiratory Rate: Normal Appearance: Positive for: Well-Appearing, Non-Toxic, Comfortable Pain Distress: None Mental Status: Positive for: Alert and Oriented X 3 - Systems Exam Head: Present: Atraumatic, Normocephalic Pupils: Present: PERRL Extroacular Muscles: Present: EOMI Conjunctiva: Present: Normal Mouth: Present: Moist Mucous Membranes Neck: Present: Normal Range of Motion Respiratory/Chest: Present: Clear to Auscultation, Good Air Exchange. No: Respiratory Distress, Accessory Muscle Use Cardiovascular: Present: Regular Rate and Rhythm, Normal S1, S2. No: Murmurs Abdomen: No: Tenderness, Distention, Peritoneal Signs Back: Present: Normal Inspection Upper Extremity: Present: Normal Inspection. No: Cyanosis, Edema Lower Extremity: Present: CALF TENDERNESS (Right calf), NORMAL PULSES, Normal ROM. No: Edema, Delonte's Sign, Swelling, Erythema, Temperature Abnormalties Neurological: Present: GCS=15, CN II-XII Intact, Speech Normal Skin: Present: Warm, Dry, Normal Color. No: Rashes Psychiatric: Present: Alert, Oriented x 3, Normal Insight, Normal Concentration Medical Decision Making ED Course and Treatment: 06/23/18 00:37 PT in ED for stated history. she was comfortable in ED. she denied cp, SOB. Doppler US IMPRESSION: 1. No sonographic evidence for deep venous thrombosis in the visualized segments of the right lower extremity. Right knee xray IMPRESSION: No acute fracture. Degenerative changes. Result was DW the pt. she also requested to speak with and spoke with Dr. Knight. she was referred to her PMD/ortho - RAD Interpretation Radiology Orders: 06/21/18 16:46 DUPLEX LOWER EXTRM VEIN RIGHT [US] Stat 06/21/18 16:47 KNEE W PATELLA RIGHT 3 VIEW [RAD] Stat Disposition/Present on Arrival - Present on Arrival Any Indicators Present on Arrival: No History of DVT/PE: No History of Uncontrolled Diabetes: No Urinary Catheter: No History of Decub. Ulcer: No History Surgical Site Infection Following: None - Disposition Have Diagnosis and Disposition been Completed?: Yes Diagnosis: Knee pain Disposition: HOME/ ROUTINE Disposition Time: 18:15 Patient Plan: Discharge Condition: STABLE Discharge Instructions (ExitCare): Knee Pain (DC) Additional Instructions: Follow up with your doctor/Orthopedist Return to ED for any new or worsening symptoms Prescriptions: RX: Ibuprofen [Motrin Tab] 600 mg PO Q6 #15 tab Referrals: Jairon Barnard III, MD [Medical Doctor] - Follow up with primary Forms: [employer] ([place]ib[place]ian)
--- NOTE | 2018-06-21 18:08 | RAD ---
Date of service: 06/21/2018 PROCEDURE: Right Knee Radiographs. HISTORY: knee pain COMPARISON: None. FINDINGS: BONES: No acute fracture. JOINTS: Mild tricompartmental narrowing with degenerative spurring. JOINT EFFUSION: None. OTHER FINDINGS: None. IMPRESSION: No acute fracture. Degenerative changes.
--- NOTE | 2018-06-21 18:55 | US ---
PROCEDURE: Right lower extremity venous US HISTORY: Leg pain and swelling. Evaluate for DVT. PHYSICIAN(S): Jamey Gleason M.D. TECHNIQUE: Duplex sonography and color-flow Doppler with graded compression were used to evaluate the deep venous system of the right lower extremity. FINDINGS: The visualized deep venous system of the right lower extremity is sonographically normal and compressible. Normal waveforms and augmentation are seen. There is no sonographic evidence for deep venous thrombosis in the visualized segments of the right lower extremity. IMPRESSION: 1. No sonographic evidence for deep venous thrombosis in the visualized segments of the right lower extremity.
== END 2018-06-21 18:33 | disposition home or self-care (01) ==
LOC: ED 16:20
DX: M25.561 Pain in right knee (principal); I10 Essential (primary) hypertension

== ENCOUNTER 2018-07-06 10:36 | Outpatient (CLI) | payer MEDICARE | END 2018-07-06 10:37 | disposition home or self-care (01) | LOC: RAD 10:36 ==